=== PATIENT | male | born 1970 | race Caucasian/White ===

== ENCOUNTER 2022-04-26 10:34 | Emergency (ER) | payer MEDICAID, SELFPAY ==
[2022-04-26] VITALS (9 sets, daily range): BP systolic 142–169; BP diastolic 65–105; PULSE 79–108; RESP 15–18; TEMP 36.8; O2SAT 92–99; BMI 33.3
--- NOTE | 2022-04-26 12:26 | CT_ITS ---
WS: [id number] CT ABDOMEN AND PELVIS WITH CONTRAST HISTORY: abdominal pain Left side, constipation, n/v TECHNIQUE: Imaging performed of the abdomen and pelvis with IV contrast. Single phase imaging of the abdomen. Coronal and sagittal reformats are submitted. All CT scans at [facility] use at [address] one of these dose optimization techniques: automated exposure control; mA and/or kV adjustment per patient size (includes targeted exams where dose is matched to clinical indication); or iterative re construction. IV CONTRAST: Omnipaque 350; 95 mL IV. Oral contrast: No DLP: 1252.63 mGy.cm COMPARISON: None available. Lower thorax: Lung bases are clear. Heart is normal size. Small hiatal hernia. Liver/biliary system: Normal size with no intrahepatic dilatation. Small amount of perihepatic fluid. Gallbladder: Normal. No gallstones or wall thickening. No pericholecystic fluid. Pancreas: Normal size pancreas and pancreatic duct. No adjacent inflammation. Spleen: Normal size spleen. No mass or infarct. Granulomata. Adrenal glands: Normal. Right kidney: Normal. Left kidney: Nonobstructing 8 mm calcification lower pole. Otherwise negative. No ureteral dilatation . Aorta: Mild atherosclerosis with no aneurysm. Proximal mesenteric arteries are patent. No thrombus or stenosis is identified. Free fluid: There is a small amount of free fluid within the abdomen and pelvis. No free air. GI tract: High-grade stenosis involving the proximal transverse colon. There is an apple core type le shruti extending over length of 4.3 cm causing a high-grade obstruction. There is wall thickening measu ring up to 1.5 cm and several small adjacent hyperemic lymph nodes. Proximal to this high-grade stric ture there is severe dilatation of the RIGHT colon. Dilatation continues into the small bowel and als o the appendix. Target sign of the small bowel. Probably due to the high-grade obstruction. This also could be seen with other etiologies. Stomach is not distended. Distal colon is negative. Abdominal wall: Very small umbilical hernia. Contains fat only. Pelvis: Urinary bladder is well distended. There is mild prostate gland enlargement and the bladder. Small amount of free fluid in the pelvis. Bones: Unremarkable. CT/CT abdomen pelvis w con* [id number] IMPRESSION: 1. 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 Colonic mass extends over length of 4.3 cm with asymmetric wall thic kening up to 1.5 cm with adjacent lymph nodes. Suspicious for metastatic diseas e. Colonoscopy recommended. 2. High-grade colonic stricture is resulting in a proximal high-grade stenosis . There is marked distention of the ascending colon. 3. Abnormal enhancement of the small bowel may be related to long-term high-gr jeffery obstruction. This type of enhancement pattern can also be seen with ischemi a, pseudomembranous colitis and infectious enterocolitis. The appendix is also fluid-filled. 4. Small amount of ascites in the abdomen and pelvis. 5. No metastatic lesions in the liver or adrenal glands.
--- NOTE | 2022-04-26 12:27 | ED_ITS ---
Documented by User: RAJEEV Ortiz 04/26/22 21:43 HPI - Abdominal Pain General: Chief Complaint: Abdominal Pain Stated Complaint: Severe Constipation Time Seen by Provider: 04/26/22 12:06 History of Present Illness: Patient is a 51-year-old male comes to the ED with abdominal pain and constipation. He states that he has a history of constipation and it has been worsening over the past year. He has not had a good BM approximately 2 weeks but does endorse having some liquid stool BM after using multiple laxatives over the past 2 weeks. He had a BM 2 days ago which she described as being minimal and very liquidy. The abdominal pain started 2 weeks ago as well and has continued to worsen. The last 4 days the abdominal pain has gotten more severe and he rates it currently an 8 out of 10. Abdominal pain is located in the left upper and lower quadrants of the abdomen. Endorses some nausea and vomiting and loss of appetite and decreased food and fluid intake. Denies any past history of abdominal surgeries and has not had a colonoscopy. He reports having some occasional black [id number] stool maybe once a month for the past year. Endorses history of anemia. Denies any fevers. Patient was referred here to the ED by urgent care for possible bowel obstruction. Associated Symptoms: Reports constipation, nausea and vomiting; Denies chills, diarrhea, dysuria, fever(s), hematochezia and hematuria Review of Systems Const: Denies: fever(s), chills or fatigue Eyes: Denies: change in vision or eye discomfort ENMT: Denies: throat pain, odynophagia, nasal discharge or nasal congestion Card: Denies: chest pain, palpitations, edema, swelling of feet/ankles, dyspnea on exertion or orthopnea Resp: Denies: dyspnea, productive cough or non-productive cough GI: Reports: abdominal pain, nausea, vomiting and constipation; Denies: diarrhea or hematochezia : Denies: flank pain, difficulty urinating, dysuria or hematuria Musc: Denies: neck pain, back pain or extremity swelling Skin/Breast: Denies: rash or new lesions Neuro: Denies: headache(s), numbness in extremities or weakness in extremities [facility] PFSH: Medical History Anemia Hypertension Surgical History No pertinent past surgical history Family History (Updated 04/26/22 @ 18:37 by Maddy Kerns MD) Denies family history of CAD (coronary artery disease) Social History (Updated 04/26/22 @ 18:38 by Maddy Kerns MD) Smoking and tobacco status: unknown if ever smoked Physical Exam Const: COMMON NORMALS: patient oriented x3 and alert GENERAL APPEARANCE: cooperative HENMT: COMMON NORMALS: normocephalic HEAD & SCALP: normocephalic MOUTH: Normal oral and palatal mucosa present THROAT: posterior oropharynx normal and uvula midline Neck/C-Spine: COMMON NORMALS: supple GENERAL: Yes normal visual inspection Resp: COMMON NORMALS: normal respiratory effort, No retractions, No use of accessory muscles and clear to auscultation bilaterally AUSCULTATION: clear to auscultation bilaterally Cardio: COMMON NORMALS: regular rate, regular rhythm, S1 normal heart sound present, S2 normal heart sound present, No gallops present (Cardio), No clicks present (Cardio), No murmurs present (Cardio) and Peripheral pulses 2+ thr oughout RATE: regular rate RHYTHM: regular rhythm HEART SOUNDS: S1 normal heart sound present and S2 normal heart sound present PERIPHERAL PULSES: Peripheral pulses 2+ throughout GI: COMMON NORMALS: Normal to inspection, nondistended, normoactive bowel sounds present, non-tender and no masses PALPATION: Yes Firmness to palpation present (GI) and Yes Tenderness to palpation present (GI) Details: LLQ and LUQ : COMMON NORMALS: Yes no CVA tenderness BLADDER/KIDNEY EXAM: Yes no CVA tenderness Back/Pelvis: COMMON NORMALS: no CVA tenderness Extremity: COMMON NORMALS: normal to inspection Neuro: COMMON NORMALS: patient oriented x3 SENSORIUM/ORIENTATION: Yes alert GAIT: Yes Normal gait present Skin: GENERAL SKIN EXAM: dry skin Course Consultations: Consultation #1: I talked with Dr. Coppola about patient case and the CT findings of a high-grade obstruction due to likely neoplasm. He wanted me to have patient admitted and patient will likely get colonoscopy and/or bowel resection here during admission. Time: 14:35 Consultation #2: I contacted Dr. Kerns and told him about patient case and Dr. Copploa wanted patient admitted. He agreed to have patient admitted to the hospital. Time: 15:05 Vital Signs: Vital signs: Vital Signs Temperature 98.3 F 04/26/22 11:56 Pulse Rate 96 04/26/22 22:26 Respiratory Rate 18 04/26/22 22:26 Blood Pressure 154/79 04/26/22 22:26 Pulse Oximetry 95 04/26/22 22:26 Oxygen Delivery Me thod 04/26/22 21:12 MDM - Abdominal Pain Medical Decision Making Patient is a 51-year-old male comes to the ED with abdominal pain and constipation. He states that he has a history of constipation and it has been worsening over the past year. Patient appears in some discomfort and pain. He has abdominal tenderness on left upper and left lower quadrants of the abdomen. Rest of exam is benign. Vitals are stable. White blood cell count 13.2. CT of abdomen pelvis showed a high-grade stricture secondary to neoplasm involving the proximal transverse colon, concerning for metastatic disease. I discussed this patient's care with RAJEEV Ortiz. I reviewed documentation, laboratory studies, imaging. In discussion with surgeon at our facility Dr. Coppola, patient will likely have better outcome if he can have a colonic stent placed followed by decompression and then a 1 stage operation not involving a ostomy. Closest facility with bed availability who performs this procedure is in [place]. I did speak with accepting physician Dr. Choi and colorectal surgeon who is comfortable excepting the patient. I personally saw and evaluated the patient. I discussed this with the patient and he is agreeable to transfer. Samuel Monae MD Emergency Medicine Lab Data I reviewed the patient's lab results. : 04/26/22 12:06 04/26/22 12:06 Labs/Radiology: Radiology Impressions Abdomen/Pelvis CT 04/26/22 12:26 IMPRESSION: 1. High-grade stricture secondary to a neoplasm involving the proximal transverse colon. Colonic mass extends over length of 4.3 cm with asymmetric wall thickening up to 1.5 cm with adjacent lymph nodes. Suspicious for metastatic disease. Colonoscopy recommended. 2. High-grade colonic stricture is resulting in a proximal high-grade stenosis. There is marked distention of the ascending colon. 3. Abnormal enhancement of the small bowel may be related to long-term high- grade obstruction. This type of enhancement pattern can also be seen with ischemia, pseudomembranous colitis and infectious enterocolitis. The appendix is also fluid-filled. 4. Small amount of ascites in the abdomen and pelvis. 5. No metastatic lesions in the liver or adrenal glands. Laboratory Results WBC 13.2 10^3/uL (4.0-10.0) H 04/26/22 12:06 RBC 6.30 10^6/uL (4.1-5.3) H 04/26/22 12:06 Hgb 14.1 g/dL (11.7-16.6) 04/26/22 12:06 Hct 47.5 % (42.0-52.0) 04/26/22 12:06 MCV 75.4 fl (80-94) L 04/26/22 12:06 MCH 22.4 pg (28.0-34.0) L 04/26/22 12:06 MCHC 29.7 g/dL (30.0-36.0) L 04/26/22 12:06 RDW 18.1 % (12.1-15.1) H 04/26/22 12:06 Plt Count 283 10^3/cmm (130-400) 04/26/22 12:06 MPV 9.5 fL (7.4-10.4) 04/26/22 12:06 Neut % (Auto) 74.4 % 04/26/22 12:06 Lymph % (Auto) 14.4 % 04/26/22 12:06 [place] % (Auto) 8.8 % 04/26/22 12:06 Eos % (Auto) 1.0 % 04/26/22 12:06 Baso % (Auto) 1.1 % 04/26/22 12:06 Neut # (Auto) 9.83 10^3/uL (1.8-7.7) H 04/26/22 12:06 Lymph # (Auto) 1.9 10^3/uL (0.8-4.8) 04/26/22 12:06 [place] # (Auto) 1.2 10^3/uL (0.2-0.9) H 04/26/22 12:06 Eos # (Auto) 0.1 10^3/uL (0.0-0.8) 04/26/22 12:06 Baso # (Auto) 0.1 10^3/uL (0.0-0.1) 04/26/22 12:06 Nucleated RBC % (auto) 0 % 04/26/22 12:06 Nucleated RBCs # 0.0 /100WBC 04/26/22 12:06 Sodium 141 mmol/L (136-145) 04/26/22 12:06 Potassium 3.1 mmol/L (3.5-5.1) L 04/26/22 12:06 Chloride 109 mmol/L (98-107) H 04/26/22 12:06 Carbon Dioxide 22 mmol/L (22-29) 04/26/22 12:06 Anion Gap 13.1 (5-19) 04/26/22 12:06 BUN 7 mg/dL (6-20) 04/26/22 12:06 Creatinine 0.5 mg/dL (0.7-1.2) L 04/26/22 12:06 GFR Calculation 174.6 mL/min (90-130) H 04/26/22 12:06 Glucose 121 mg/dL (65-115) H 04/26/22 12:06 Calculated Osmolality 291 mOsm/kg (285-295) 04/26/22 12:06 Calcium 7.1 mg/dL (8.5-10.5) L 04/26/22 12:06 Total Bilirubin 0.8 mg/dL (0.15-1.2) 04/26/22 12:06 AST 11 U/L (0-40) 04/26/22 12:06 ALT 7 U/L (0-41) 04/26/22 12:06 Alkaline Phosphatase 110 U/L (40-130) 04/26/22 12:06 Total Protein 5.3 g/dL (6.6-8.7) L 04/26/22 12:06 Albumin 3.2 g/dL (3.5-5.2) L 04/26/22 12:06 Globulin 2.1 g/dL (1.3-4.6) 04/26/22 12:06 Lipase 14 U/L (13-60) 04/26/22 12:06 Urine Color Yellow (Yellow) 04/26/22 15:38 Urine Appearance Clear (CLEAR) 04/26/22 15:38 Urine pH 5 (5-7) 04/26/22 15:38 Ur Specific Ucon 1.010 (1.005-1.030) 04/26/22 15:38 Urine Protein 1+ (Negative) H 04/26/22 15:38 Urine Glucose (UA) Norm (Normal) 04/26/22 15:38 Urine Ketones Negative (Negative) 04/26/22 15:38 Urine Blood 2+ (Negative) H 04/26/22 15:38 Urine Nitrate Negative (Negative) 04/26/22 15:38 Urine Bilirubin Neg (Negative) 04/26/22 15:38 Urine Urobilinogen Norm mg/dL (Negative) 04/26/22 15:38 Ur Leukocyte Esterase Negative (Negative) 04/26/22 15:38 Urine RBC 0-4 /hpf (0-2) H 04/26/22 15:38 Urine WBC None /hpf (0-5) 04/26/22 15:38 Ur Squamous Epith Cells 0-4 /hpf (0-5) H 04/26/22 15:38 Amorphous Sediment Not Reportable 04/26/22 15:38 Urine Bacteria 1+ /hpf (NONE) H 04/26/22 15:38 Discharge Plan Discharge Patient Disposition: Xfer Short-Term Hosp Clinical Impression: Colonic mass, Bowel obstruction Condition: Stable Referrals: Rosa Maravilla DO [Primary Care Provider] - Coding Level of Care Code ED Melt House Drag Operator for Chg Fwd Exam Comprehensive Documented by User: Samuel Monae MD 04/28/22 12:21 HPI - Abdominal Pain General: Chief Complaint: Abdominal Pain Stated Complaint: Severe Constipation Time Seen by Provider: 04/26/22 12:06 PFSH ED PFSH: Medical History Anemia Hypertension Surgical History No pertinent past surgical history Family History (Updated 04/26/22 @ 18:37 by Maddy Kerns MD) Denies family history of CAD (coronary artery disease) Social History (Updated 04/26/22 @ 18:38 by Maddy Kerns MD) Smoking and tobacco status: unknown if ever smoked Course Vital Signs: Vital signs: Vital Signs Temperature 98.3 F 04/26/22 11:56 Pulse Rate 96 04/26/22 22:26 Respiratory Rate 18 04/26/22 22:26 Blood Pressure 154/79 04/26/22 22:26 Pulse Oximetry 95 04/26/22 22:26 Oxygen Delivery Me thod 04/26/22 21:12 MDM - Abdominal Pain Medical Decision Making I discussed this patient's care with RAJEEV Ortiz. I reviewed documentation, laboratory studies, imaging. In discussion with surgeon at our facility Dr. Coppola patient will likely have better outcome if he can have a colonic stent placed followed by decompression and then a 1 stage operation not involving a ostomy. Closest facility with bed availability who performs this procedure is in [place]. I did speak with accepting physician Dr. Choi and colorectal surgeon who is comfortable excepting the patient. I personally saw and evaluated the patient. I discussed this with the patient and he is agreeable to transfer. Samuel Monae MD Emergency Medicine Lab Data : 04/26/22 12:06 04/26/22 12:06 Labs/Radiology: Radiology Impressions Abdomen/Pelvis CT 04/26/22 12:26
[2022-04-26] MEDS: morphine 4 mg/mL SDV 1 mL IVP ×2 (12:38→18:02)
[2022-04-26] MEDS: sodium chloride 0.9% 500 ML 999 ML IV (12:38)
[2022-04-26] MEDS: ondansetron 2 mg/ML SDV 2 mL 4 MG IVP (12:38)
[2022-04-26 12:43] LABS: Basophils # 0.1 10^3/uL (0.0-0.1); Basophils % 1.1 %; Eosinophils # 0.1 10^3/uL (0.0-0.8); Hematocrit 47.5 % (42.0-52.0); Hemoglobin 14.1 g/dL (11.7-16.6); Lymphocytes # 1.9 10^3/uL (0.8-4.8); Lymphocytes % 14.4 %; Mean Corpuscular HGB Conc 29.7 g/dL (30.0-36.0); Mean Corpuscular Hemoglobin 22.4 pg (28.0-34.0); Mean Corpuscular Volume 75.4 fl (80-94); Mean Platelet Volume 9.5 fL (7.4-10.4); Monocytes # 1.2 10^3/uL (0.2-0.9); Monocytes % 8.8 %; Neutrophils # 9.83 10^3/uL (1.8-7.7); Neutrophils % 74.4 %; Nucleated Red Blood Cells % 0 %; Platelet Count 283 10^3/cmm (130-400); Red Cell Distribution Width 18.1 % (12.1-15.1); White Blood Count 13.2 10^3/uL (4.0-10.0)
[2022-04-26 12:52] LABS: Alanine Aminotransferase 7 U/L (0-41); Albumin Level 3.2 g/dL (3.5-5.2); Alkaline Phosphatase 110 U/L (40-130); Anion Gap 13.1 (5-19); Aspartate Amino Transferase 11 U/L (0-40); Blood Urea Nitrogen 7 mg/dL (6-20); Calcium 7.1 mg/dL (8.5-10.5); Carbon Dioxide 22 mmol/L (22-29); Chloride 109 mmol/L (98-107); Globulin 2.1 g/dL (1.3-4.6); Glomerular Filtration Rate 174.6 mL/min (90-130); Glucose 121 mg/dL (65-115); Lipase 14 U/L (13-60); Osmolality Calculated 291 mOsm/kg (285-295); Potassium 3.1 mmol/L (3.5-5.1); Sodium 141 mmol/L (136-145); Total Bilirubin 0.8 mg/dL (0.15-1.2); Total Protein 5.3 g/dL (6.6-8.7)
[2022-04-26 16:44] LABS: Urine Appearance Clear (CLEAR); Urine Color Yellow (Yellow); pH Urine 5 (5-7)
[2022-04-26 16:45] LABS: Add Urine Culture? No; Add Urine Microscopic? YES; Bacteria Urine 1+ /hpf; Bilirubin Urine Neg (Negative); Blood Urine 2+ (Negative); Glucose Urine UA Norm (Normal); Ketones Urine Negative (Negative); Leukocyte Esterase Urine Negative (Negative); Nitrate Urine Negative (Negative); Protein Urine 1+ (Negative); RBC Urine 0-4 /hpf (0-2); Squamous Epithelial Cell Urine 0-4 /hpf (0-5); Urobilinogen Urine Norm (Negative)
--- NOTE | 2022-04-26 16:55 | P.HP_ITS ---
Providers/Chief Complaint Admitting Physician: Maddy Kerns MD Primary Care Provider: Rosa Maravilla DO Chief Complaint: Abdominal pain History of Present Illness Mr.James Pedro Pablo Adame is a pleasant 51 year old male presenting to the emergency department with worsening abdominal pain mostly dull aching and located more towards the central and upper part of the abdomen. Patient has been passing gas not a whole lot when he went to the CT scan and has been having liquidy stool. Patient was supposed to get a colonoscopy about a year ago but for unclear reason and perhaps for insurance purposes it got postponed. Nothing seems to make the pain better or worse and is not being referred. As the pain got worse came to the ER for further work-up in the form of WBC count of 13.2, hemoglobin 14.1, platelet count 283, sodium 141, potassium 3.1 and serum albumin 3.2. Patient undergone a CT of the abdomen pelvis that did show; 1.? High-grade stricture secondary to a neoplasm involving the proximal transverse colon. Colonic mass extends over length of 4.3 cm with asymmetric wall thickening up to 1.5 cm with adjacent lymph nodes. Suspicious for metastatic disease. Colonoscopy recommended. 2.? High-grade colonic stricture is resulting in a proximal high-grade stenosis. There is marked distention of the ascending colon. 3.? Abnormal enhancement of the small bowel may be related to long-term high- grade obstruction. This type of enhancement pattern can also be seen with ischemia, pseudomembranous colitis and infectious enterocolitis. The appendix is also fluid-filled. 4.? Small amount of ascites in the abdomen and pelvis. 5.? No metastatic lesions in the liver or adrenal glands. Patient never had a colonoscopy before. General surgery was consulted for further evaluation and potential intervention. Review of Systems General: Reports: 10 or more systems reviewed and unremarkable except in HPI and below Medications/Allergies Home Medications Medication Instructions Recorded Confirmed Last Taken Type albuterol sulfate 90 mcg/actuation 2 puff inhalation Q6H PRN 04/26/22 04/26/22 Unknown History aerosol inhaler Shortness Of Breath Or Wheezing ascorbic acid (vitamin C) 500 mg 500 mg PO DAILY 04/26/22 04/26/22 04/24/22 History tablet (Vitamin C) atenolol 100 mg tablet 100 mg PO DAILY 04/26/22 04/26/22 04/24/22 History atorvastatin 40 mg tablet 40 mg PO BEDTIME 04/26/22 04/26/22 04/23/22 History dapagliflozin 10 mg tablet 10 mg PO DAILY 04/26/22 04/26/22 04/24/22 History (Farxiga) ferrous sulfate 325 mg (65 mg 325 mg PO DAILY 04/26/22 04/26/22 04/24/22 History iron) tablet (FeroSul) lisinopril 20 1 tab PO DAILY 04/26/22 04/26/22 04/24/22 History mg-hydrochlorothiazide 12.5 mg tablet pioglitazone 45 mg tablet 45 mg PO DAILY 04/26/22 04/26/22 04/24/22 History Allergies Allergy/AdvReac Type Severity Reaction Status Date / Time No Known Allergies Allergy Verified 04/26/22 16:59 PFSH Acute PFSH: Medical History Anemia Hypertension Surgical History No pertinent past surgical history Vitals/I&O/Wt Last Vital Signs Temp 98.3 F 04/26/22 11:56 Pulse 96 04/26/22 15:30 Resp 16 04/26/22 15:30 BP 157/94 04/26/22 15:30 Pulse Ox 98 04/26/22 15:30 O2 Del Method 04/26/22 15:30 Weight last 48 hrs Weight 232 lb Physical Exam Narrative: Patient is conscious alert oriented X3 Mild distress BMI 33.3 Head and neck examination PERRLA no masses no cervical lymphadenopathy no jaundice Cardiac examination audible S1-S2 no murmurs no gallops no arrhythmias Chest presence of bilateral Rhonchi or wheezes,no surgical emphysema Abdomen mildly tender moderately distended soft no organomegaly guarding or rigidity/no signs of peritonitis Presence of reducible umbilical hernia Extremities no cyanosis no clubbing no edema Data : 04/26/22 12:06 04/26/22 12:06 A&P Assessment and plan (1) Partial obstruction of colon: After thorough history physical examination and reviewing the chart and images with my personal interpretation. I did pre parole counseling aide the patient for laparoscopic extended right hemicolectomy possible open with possible ileostomy with a long Serrano's. Yet also I did talk with the patient about the potential stent placement for appropriate colon prep if applicable as with the current pathological changes on the CT scan it would be very challenging to have a good colon prep and cleansing of the colon to minimize potential chance of ileostomy. But unfortunately we do not have stents available in our facility and patient has to be transferred to higher level of care for that purpose and still in spite of that an attempt to placement of the stent which could not be successful and patient may end up by having potential laparoscopy or laparotomy with ileostomy and Serrano's procedure. Patient understands his options and he prefers at this point to proceed with a stent if possible. I did talk with my partners in the emergency department to facilitate transfer after canceling the admission orders and I will make myself available for further discussion of the case over the phone with any other faci lity available to accept the patient. Otherwise patient understands that the original plan have him scheduled for laparoscopic right hemicolectomy possible open with possible ileostomy. Meanwhile we will place an NG tube for decompression and connected to low intermittent wall suction Hospitalist service on board for medical management of other medical comorbidities. Patient was seen and examined in the emergency department room #4. Attestations Medical Necessity Statement*: Patient will require transfer to higher level of care for stent placement across the colonic obstruction for appropriate colon prep Time Spent in Patient Care: 16 - 35 minutes Coding Level of Care Code Acute Health Officer for Asher Kumar Diagnoses Partial obstruction of colon K56.600
[2022-04-26] MEDS: haloperidol inj 5 mg/mL INJ 1 mL 2 MG IVP (17:37)
--- NOTE | 2022-04-26 17:37 | PM.CONSULT ---
Providers/Reason For Consult Consulting Physician/Specialty*: Hospitalist Reason for Consult*: Medically managed Attending Physician: Maddy Kerns MD Primary Care Provider: Rosa Maravilla DO History of Present Illness History of Present Illness John Adame is a 51 year old male who has been having central abdominal pain for last 7 to 10 days, his last bowel movement was on Sunday, presented today for worsening of his abdominal pain. Patient has had only 3 episodes of emesis in last 7 days. He has not noticed any fever. In the ER he was diagnosed with severe colon obstruction he never had any colonoscopy before, Dr. Coppola has recommended stent placement and transfer to tertiary level of care. Hospital service has been requested for medical management while he is awaiting for the transfer At the time of evaluation patient is very agitated because of NG tube however no active content in the NG container Abdomen is distended, slightly tender to palpate Yesterday is markedly distended CT scan findings reviewed NG placed Potassium repleted, for Rales and rhonchi I have given him steroids Patient is agreeable for the transfer ER is calling different hospitals to get excepted I have spoken with Dr. Garcia to try [facility] Patient is full code Review of Systems Const: Reports: chills and body aches Eyes: Denies: change in vision ENMT: Denies: throat pain Card: Denies: chest pain Resp: Denies: dyspnea GI: Reports: abdominal pain, nausea and vomiting : Denies: flank pain Musc: Denies: neck pain Skin/Breast: Denies: rash Neuro: Denies: headache(s) Psych: Reports: anxiety Endo: Denies: polyuria Gonzalo/Lymph: Denies: easy bruising All/Imm: Denies: urticaria Medications/Allergies Home Medications Medication Instructions Recorded Confirmed Last Taken Type albuterol sulfate 90 mcg/actuation 2 puff inhalation Q6H PRN 04/26/22 04/26/22 Unknown History aerosol inhaler Shortness Of Breath Or Wheezing ascorbic acid (vitamin C) 500 mg 500 mg PO DAILY 04/26/22 04/26/22 04/24/22 History tablet (Vitamin C) atenolol 100 mg tablet 100 mg PO DAILY 04/26/22 04/26/22 04/24/22 History atorvastatin 40 mg tablet 40 mg PO BEDTIME 04/26/22 04/26/22 04/23/22 History dapagliflozin 10 mg tablet 10 mg PO DAILY 04/26/22 04/26/22 04/24/22 History (Farxiga) ferrous sulfate 325 mg (65 mg 325 mg PO DAILY 04/26/22 04/26/22 04/24/22 History iron) tablet (FeroSul) lisinopril 20 1 tab PO DAILY 04/26/22 04/26/22 04/24/22 History mg-hydrochlorothiazide 12.5 mg tablet pioglitazone 45 mg tablet 45 mg PO DAILY 04/26/22 04/26/22 04/24/22 History Allergies Allergy/AdvReac Type Severity Reaction Status Date / Time No Known Allergies Allergy Verified 04/26/22 16:59 PFSH Acute PFSH: Medical History Anemia Hypertension Surgical History No pertinent past surgical history Family History (Updated 04/26/22 @ 18:37 by Maddy Kerns MD) Denies family history of CAD (coronary artery disease) Social History (Updated 04/26/22 @ 18:38 by Maddy Kerns MD) Smoking and tobacco status: unknown if ever smoked Vitals/I&O/Wt Last Vital Signs Temp 98.3 F 04/26/22 11:56 Pulse 96 04/26/22 15:30 Resp 16 04/26/22 15:30 BP 157/94 04/26/22 15:30 Pulse Ox 98 04/26/22 15:30 O2 Del Method 04/26/22 15:30 Weight last 48 hrs Weight 105.233 kg Physical Exam Narrative: Patient is laying supine NG tube in place In distress Hemodynamically stable Currently on room air Saturating well Abdomen mildly distended, tender to palpate however no signs of peritonitis Awake and alert Looks euvolemic Pleasant and cooperative during my evaluation Currently on room air Nonfocal neuro exam Data : 04/26/22 12:06 04/26/22 12:06 A&P Assessment and plan (1) Partial obstruction of colon: (2) Colon cancer: Plan Dr. Coppola as recommended stent placement and transfer to tertiary care center I will keep patient n.p.o. 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
[2022-04-26] MEDS: lidocaine 1% 5 ML in potassium chloride premix 100 ML 25 ML IV (17:54)
--- NOTE | 2022-04-26 20:14 | PC.NURSE ---
PT DC NG TUBE AT 2015
== END 2022-04-26 23:31 | disposition short-term general hospital (02) ==
LOC: ER 12:33 → MEDSURG 17:27
PROVIDERS: Physician Assistant; Emergency Provider Emergency Medicine; PCP Family Medicine
DX: K56.609 Unspecified intestinal obstruction, unspecified as to partial versus complete obstruction (principal); K63.9 Disease of intestine, unspecified; I10 Essential (primary) hypertension
CPT/HCPCS: 74177; 80053; 81001; 83690; 85025; 96365; 96366; 96376; 99285; J1630; J2270; J2405; J3480; J7040; Q9967